=== PATIENT | female | born 2000 | race Caucasian/White ===

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

== ENCOUNTER 2021-08-31 13:09 | Emergency (ER) | payer BC ==
[2021-08-31] MEDS ORDERED: ACETAMINOPHEN TAB 500 MG TAB PO STA (15:55)
--- NOTE | 2021-08-31 15:58 | ED ---
General Adult HPI - General Chief complaint: Upper Respiratory Infection Stated complaint: Covid+/antibodies Time Seen by Provider: 08/31/21 15:22 Source: patient, RN notes reviewed Mode of arrival: ambulatory Limitations: no limitations - History of Present Illness Initial comments: 20-year-old female presents emergency Department with chief complaint of COVID- 19. Patient tested positive a week ago. Patient states she's not getting any better splinted fevers chills body shortness of breath. She is not taking any recent Tylenol Motrin. Patient denies any prior lung disease no current medications. - Related Data Previous Rx's Medication Instructions Recorded Acetaminophen-Codeine 300-30mg 1 tab PO Q6H PRN #12 tablet 02/04/18 [Tylenol #3] Allergies Allergy/AdvReac Type Severity Reaction Status Date / Time No Known Allergies Allergy Verified 08/31/21 14:02 Review of Systems ROS Statement: Those systems with pertinent positive or pertinent negative responses have been documented in the HPI. ROS Other: All systems not noted in ROS Statement are negative. Past Medical History Past Medical History: No Reported History History of Any Multi-Drug Resistant Organisms: None Reported Additional Past Surgical History / Comment(s): forehead flap. Past Psychological History: No Psychological Hx Reported Past Alcohol Use History: None Reported Past Drug Use History: None Reported General Exam Limitations: no limitations General appearance: alert, in no apparent distress Head exam: Present: atraumatic, normocephalic, normal inspection Eye exam: Present: normal appearance, PERRL, EOMI. Absent: scleral icterus, conjunctival injection, periorbital swelling ENT exam: Present: normal exam, mucous membranes moist Neck exam: Present: normal inspection. Absent: tenderness, meningismus, lymphadenopathy Respiratory exam: Present: normal lung sounds bilaterally. Absent: respiratory distress, wheezes, rales, rhonchi, stridor Cardiovascular Exam: Present: normal rhythm, tachycardia, normal heart sounds. Absent: systolic murmur, diastolic murmur, rubs, gallop, clicks GI/Abdominal exam: Present: soft, normal bowel sounds. Absent: distended, tenderness, guarding, rebound, rigid Course Vital Signs 08/31/21 13:58 Temperature 99.2 F Pulse Rate 111 H Respiratory 19 Rate Blood Pressure 107/68 O2 Sat by Pulse 97 Oximetry Medical Decision Making - Medical Decision Making Patient did receive monoclonal antibodies, pulse ox within normals. Patient d ischarged in stable condition return parameters discussed. Disposition Clinical Impression: COVID-19 Disposition: HOME SELF-CARE Condition: Stable Instructions (If sedation given, give patient instructions): Coronavirus Disease 2019 (COVID-19) Additional Instructions: Please return to the Emergency Department if symptoms worsen or any other concerns. Is patient prescribed a controlled substance at d/c from ED?: No Referrals: Mik Beltran DO [Primary Care Provider] - 1-2 days Time of Disposition: 15:57
[2021-08-31] MEDS ORDERED: CASIRIVIMAB (REGN10933) (EUA) 600 MG, IMDEVIMAB (REGN10987) (EUA) 600 MG in SODIUM CHLO... IVPB ONE (16:00)
[2021-08-31] MEDS ORDERED: SODIUM CHLORIDE 0.9% 50 ML IVPB ONE (16:00)
[2021-08-31 17:57] VITALS: BP 117/75; PULSE 104; RESP 18; TEMP 99.9
== END 2021-08-31 17:57 | disposition home or self-care (01) ==
LOC: EC 13:09
DX: U07.1 COVID-19 (principal)
CPT/HCPCS: 99283

== ENCOUNTER → 2024-12-29 | Outpatient (CLI) | payer BC ==
--- NOTE | 2024-12-30 07:37 | FL ---
EXAMINATION TYPE: FL hysterosalpingography DATE OF EXAM: 12/29/2024 HISTORY: Infertility. Informed consent was obtained and all the patient's questions were answered. Pulmonary film of the p alessandro reveals no distinct abnormality. A speculum was introduced and the external cervical os was lo calize. The external cervical os was cleansed and a Betadine solution on 3 occasions. Hysterosalpin gography catheter was introduced into the uterus and balloon insufflation device deployed. Approxima tely 20 cc of nonionic contrast was injected in a retrograde manner. The uterus has a normal size shape and appearance. No persistent uterine filling defects are seen. Both fallopian tubes fill with contrast. There is a suggestion of mild bilateral hydrosalpinx. There is spill of contrast into the peritoneal cavity bilaterally . IMPRESSION: Mild bilateral hydrosalpinx without spillage of contrast into the peritoneal cavity bilaterally. [facility], , 12/30/2024 7:34 AM
== END | disposition home or self-care (01) ==
LOC: RADFLMAIN 14:47
PROVIDERS: ATTEND Obstetrics & Gynecology
DX: N97.9 Female infertility, unspecified (principal); N70.11 Chronic salpingitis
CPT/HCPCS: 58340; 74740; Q9967